=== PATIENT | male | born 1995 | race Two or more races ===

== ENCOUNTER 2023-08-27 19:24 | Emergency (ER) | payer SELFPAY ==
[~2023-08-27] VITALS: Ht 162.6 cm; Wt 60.0 kg
[2023-08-27 19:31] VITALS: BP 120/82; PULSE 69; RESP 15; TEMP 98.1
[2023-08-27 19:54] LABS: COVID AG,FIA SOURCE NASAL SWAB
[2023-08-27 20:19] LABS: INFLUENZA TYPE A NEGATIVE FOR TYPE A (NEGATIVE); INFLUENZA TYPE B NEGATIVE FOR TYPE B (NEGATIVE); SARS-COV2 (COVID) ANTIGEN,FIA Negative (Negative)
== END 2023-08-28 00:22 | disposition left against medical advice (07) ==
LOC: EMS 19:30
DX: J02.9 Acute pharyngitis, unspecified (principal); Z53.21 Procedure and treatment not carried out due to patient leaving prior to being seen by health care provider
CPT/HCPCS: 87804; 99281; Z7502